=== PATIENT | male | born 1980 | race Caucasian/White ===

== ENCOUNTER 2023-03-25 11:56 | Outpatient (NON) | payer BC, SELFPAY | END 2023-03-25 11:57 | disposition home or self-care (01) | LOC: ANHLAB 03-26 12:00 | PROVIDERS: Visit Provider Nurse Practitioner | DX: D22.62 Melanocytic nevi of left upper limb, including shoulder (principal) | CPT/HCPCS: 88305 ==

== ENCOUNTER 2023-05-05 12:25 | Outpatient (NON) | payer BC, SELFPAY | END 2023-05-05 12:26 | disposition home or self-care (01) | PROVIDERS: Visit Provider Nurse Practitioner | DX: I78.1 Nevus, non-neoplastic (principal); L72.0 Epidermal cyst | CPT/HCPCS: 88305 ==